=== PATIENT | female | born 1945 | race Caucasian/White ===

== ENCOUNTER 2018-10-03 18:48 | Emergency (ER) | END 2018-10-03 20:00 | disposition left against medical advice (07) | LOC: ER 18:48 | DX: Z53.21 Procedure and treatment not carried out due to patient leaving prior to being seen by health care provider (principal) ==

== ENCOUNTER 2018-11-12 08:05 | Day surgery (SDC) | payer MEDICARE, OTHER ==
[~2018-11-12 08:05] MED LIST: CHONDR SU A NA/HYALUR INTRAOC KIT (SURGICARE) ONE; EPINEPHRINE INJ/PF 1 MG/1 ML AMPULE ONE; KETOROLAC TROMETHAMINE 0.45% 4 DROP/0.4 ML DROPERETTE OD PRN; LIDOCAINE 1% INJ-PF (10 MG/ML) 30 ML SDV ONE
[2018-11-12] MEDS: CYCLOPENTOLATE 0.2%/PHENYLEPHRINE 1% OPH SOLN 2 ML OD PRN ×3 (08:34→08:53)
[2018-11-12] MEDS: TROPICAMIDE 1% OPH SOLN 3 ML OD PRN ×3 (08:34→08:53)
[2018-11-12] MEDS: BESIFLOXACIN HCL 0.6% OPH SUSP 5 ML BOTTLE OD PRN ×4 (08:35→09:32)
[2018-11-12] MEDS: TETRACAINE HCL 0.5% OPH SOLN 0.6 ML DROPERETTE OD PRN ×3 (08:36→09:00)
[2018-11-12] MEDS ORDERED: MIDAZOLAM 2 MG/2 ML INJ ONE (08:47)
[2018-11-12] MEDS: TOBRAMYCIN SULFATE/DEXAMETH OPH OINTMENT 3.5 GM ONE ×2 (09:32)
== END 2018-11-12 10:16 | disposition home or self-care (01) ==
LOC: SC 08:05
PROVIDERS: ATTEND Ophthalmology
DX: H25.11 Age-related nuclear cataract, right eye (principal); I49.9 Cardiac arrhythmia, unspecified
CPT/HCPCS: 66984; V2632; J2250; J3490 ×3; A9270; J0171; 142

== ENCOUNTER 2018-12-03 07:59 | Day surgery (SDC) | payer MEDICARE ==
[2018-12-03] MEDS: TETRACAINE HCL 0.5% OPH SOLN 0.6 ML DROPERETTE OS PRN ×4 (08:45→09:18)
[2018-12-03] MEDS: BESIFLOXACIN HCL 0.6% OPH SUSP 5 ML BOTTLE OS PRN ×4 (08:46→09:39)
[2018-12-03] MEDS: CYCLOPENTOLATE 0.2%/PHENYLEPHRINE 1% OPH SOLN 2 ML OS PRN ×3 (08:46→09:12)
[2018-12-03] MEDS: TROPICAMIDE 1% OPH SOLN 3 ML OS PRN ×3 (08:46→09:12)
[2018-12-03] MEDS: KETOROLAC TROMETHAMINE 0.45% 4 DROP/0.4 ML DROPERETTE OS PRN ×2 (08:47→09:57)
[2018-12-03] MEDS ORDERED: FENTANYL CITRATE INJ/PF 100 MCG/2 ML AMPUL ONE (09:13)
[2018-12-03] MEDS ORDERED: MIDAZOLAM 2 MG/2 ML INJ ONE (09:13)
[2018-12-03] MEDS: LIDOCAINE 1% INJ-PF (10 MG/ML) 30 ML SDV ONE ×2 (09:26)
[2018-12-03] MEDS: CHONDR SU A NA/HYALUR INTRAOC KIT (SURGICARE) ONE ×2 (09:26)
[2018-12-03] MEDS: EPINEPHRINE INJ/PF 1 MG/1 ML AMPULE ONE ×2 (09:26)
[2018-12-03] MEDS: TOBRAMYCIN SULFATE/DEXAMETH OPH OINTMENT 3.5 GM ONE ×2 (09:39)
== END 2018-12-03 10:25 | disposition home or self-care (01) ==
LOC: SC 07:59
PROVIDERS: ATTEND Ophthalmology
DX: H25.12 Age-related nuclear cataract, left eye (principal); Z98.41 Cataract extraction status, right eye; Z79.899 Other long term (current) drug therapy
CPT/HCPCS: 66984; V2632; J2250; J3490 ×3; A9270; J0171; J3010; 142